=== PATIENT | female | born 1975 | race Caucasian/White ===

== ENCOUNTER 2020-10-04 16:09 | Emergency (ER) | payer OTHER ==
[~2020-10-04] VITALS: Ht 165.1 cm; Wt 102.1 kg
[~2020-10-04 16:09] MED LIST: CIPRO500 MG PO; HYDROCHLOROTHIA25 MG PO; PYRIDIUM DS200 MG PO; SYNTHROID175 MCG PO; ZOCOR20 MG PO
[2020-10-04] MEDS ORDERED: PROTONIX40 MG (16:23)
[2020-10-04] MEDS ORDERED: COZAAR50 MG (16:23)
== END 2020-10-05 03:51 | disposition home or self-care (01) ==
LOC: ER 16:09
DX: N20.0 Calculus of kidney (principal)

== ENCOUNTER 2023-01-03 09:17 | Outpatient (CLI) | payer OTHER ==
[~2023-01-03 09:17] MED LIST changes: +COZAAR50 MG; +PROTONIX40 MG
== END 2023-01-03 09:19 | disposition home or self-care (01) ==
LOC: RX STUDY 09:17
PROVIDERS: ATTEND Internal Medicine Gastroenterology
DX: R13.19 Other dysphagia (principal)